=== PATIENT | male | born 1950 ===

== ENCOUNTER → 2017-03-31 | Outpatient (REF) ==
[~2017-03-31] MED LIST: DEPO-TESTOS200 MG/M1 IM; DOXYCYCLINE 10100 MG PO; GADOBUTROL IV; GLUCOPHAGE1000 MG PO; GLUCOPHAGE500 MG/TAB PO; JANUVIA 100MG100 MG PO; K-TAB20 PO; LEVAQUIN 750MG750 M1 PO; LEVEMIR100 U/ML SQ; LOVENOX 4040 MG/0.4 SQ; NORCO 325 MG-51 TAB PO; NOVOLOG 100U100 U/M1 SQ; PROTONIX 40MG T40 MG PO; PROZAC 10MG10 MG PO; SEPTRA DS 8001 TAB PO; VANCOCIN HCL1 GM IV
== END ==
LOC: ZLAB.WCH 10:22
DX: Z01.89 Encounter for other specified special examinations (principal)

== ENCOUNTER → 2017-04-02 | Outpatient (REF) | LOC: ZLAB.WCH 08:48 | DX: Z01.89 Encounter for other specified special examinations (principal) ==

== ENCOUNTER → 2017-04-02 | Outpatient (REF) | LOC: ZLAB.WCH 18:22 | DX: Z01.89 Encounter for other specified special examinations (principal) ==

== ENCOUNTER 2017-04-04 13:07 | Outpatient (CLI) | payer MEDICARE ==
[2017-04-04] MEDS ORDERED: LEVEMIR100 U/ML SQ ×2 (15:02→15:07)
[2017-04-04] MEDS ORDERED: GLUCOPHAGE500 MG/TAB PO (15:02)
[2017-04-04] MEDS ORDERED: DEPO-TESTOS200 MG/M1 IM (15:03)
[2017-04-04] MEDS ORDERED: GADOBUTROL IV (15:04)
[2017-04-04] MEDS ORDERED: SEPTRA DS 8001 TAB PO (15:05)
[2017-04-04] MEDS ORDERED: PROTONIX 40MG T40 MG PO (15:06)
[2017-04-04] MEDS ORDERED: LEVAQUIN 750MG750 M1 PO (15:06)
[2017-04-04] MEDS ORDERED: PROZAC 10MG10 MG PO (15:08)
[2017-04-04] MEDS ORDERED: VANCOCIN HCL1 GM IV (15:09)
[2017-04-04] MEDS ORDERED: NOVOLOG 100U100 U/M1 SQ (15:09)
[2017-04-04] MEDS ORDERED: NORCO 325 MG-51 TAB PO (15:10)
[2017-04-04] MEDS ORDERED: K-TAB20 PO (15:11)
[2017-04-04] MEDS ORDERED: LOVENOX 4040 MG/0.4 SQ (15:11)
== END 2017-04-04 15:14 | disposition home or self-care (01) ==
LOC: EUO 13:07
DX: M86.9 Osteomyelitis, unspecified (principal); Z95.828 Presence of other vascular implants and grafts
CPT/HCPCS: C1751

== ENCOUNTER → 2017-04-04 | Outpatient (REF) ==
[2017-04-04 09:51] LABS: THYROID STIMULATING HORMONE 1.46 uIU/mL (0.465-4.680)
== END ==
LOC: ZLAB.WCH 08:51
PROVIDERS: Internal Medicine
DX: Z01.89 Encounter for other specified special examinations (principal)

== ENCOUNTER → 2017-04-06 | Outpatient (REF) ==
[2017-04-07 21:24] LABS: CREATININE, serum 0.81 mg/dL (0.66-1.25)
== END ==
LOC: ZLAB.WCH 12:35
PROVIDERS: Internal Medicine
DX: Z01.89 Encounter for other specified special examinations (principal)

== ENCOUNTER → 2017-04-08 | Outpatient (REF) | LOC: ZLAB.WCH 09:02 | DX: Z01.89 Encounter for other specified special examinations (principal) ==

== ENCOUNTER → 2017-04-10 | Outpatient (REF) | LOC: ZLAB.WCH 11:12 | DX: Z01.89 Encounter for other specified special examinations (principal) ==

== ENCOUNTER 2017-04-15 08:59 | Inpatient (IN) | payer MEDICARE ==
[~2017-04-15] VITALS: Ht 175.3 cm; Wt 100.0 kg
[~2017-04-15 08:59] MED LIST changes: -DOXYCYCLINE 10100 MG PO; -GLUCOPHAGE1000 MG PO; -JANUVIA 100MG100 MG PO
[2017-04-15 11:02] VITALS: BP 120/74; PULSE 84; TEMP 97.7
[2017-04-15 12:02] LABS: BASO % 0.5 % (0.0-2.0); EOS # 0.1 (0.0-0.7); EOS % 1.9 % (0-4.0); GRAN # 4.6 (1.4-6.5); GRAN % 62.6 % (42.2-75.2); HEMOGLOBIN 12.1 g/dl (13.5-18.0); LYMPH # 1.9 (1.2-3.4); LYMPH % 25.8 % (20.0-51.0); MEAN CELL VOLUME 93 fl (80.0-100.0); MEAN CORPUSCULAR HEMOGLOBIN 31 pg (27.0-31.0); MEAN CORPUSCULAR HGB CONC 33 g/dl (33.0-37.0); MEAN PLATELET VOLUME 9.3 fl (7.4-10.4); MONO # 0.6 (0.1-0.6); MONO % 8.7 % (1.7-9.3); PLATELET COUNT 326 K/mm3 (130-400); RED BLOOD COUNT 3.96 M/mm3 (4.20-5.60); REDCELL DISTRIBUTION WIDTH-CV 13.8 % (11.5-14.5); WHITE BLOOD COUNT 7.4 K/mm3 (4.8-10.8)
[2017-04-15 12:05] LABS: HEMATOCRIT 36.8 % (42.0-52.0)
[2017-04-15 12:30] VITALS: BP 129/77; PULSE 69; TEMP 97.4
[2017-04-15 12:35] LABS: ADJUSTED CALCIUM 9.3 mg/dL (8.4-10.2); ALBUMIN 3.1 gm/dL (3.5-5.0); BILIRUBIN,TOTAL 0.5 mg/dL (0.0-1.0); CALCIUM 8.6 mg/dL (8.4-10.2); CREATININE, serum 0.83 mg/dL (0.66-1.25); POTASSIUM 3.6 mmol/L (3.4-5.0)
[2017-04-15 15:33] VITALS: BP 145/75; PULSE 77; TEMP 97.8
[2017-04-15 18:20] VITALS: BP 137/80; PULSE 67; TEMP 97.4
[2017-04-15 20:36] VITALS: BP 123/64; PULSE 80; TEMP 98.9
[2017-04-16 02:20] VITALS: BP 125/62; PULSE 76; TEMP 98.7
[2017-04-16 06:20] VITALS: BP 108/73; PULSE 85; TEMP 97.6
[2017-04-16 06:52] LABS: HEMATOCRIT 36.3 % (42.0-52.0); HEMOGLOBIN 11.8 g/dl (13.5-18.0)
[2017-04-16 07:08] LABS: CALCIUM 8.4 mg/dL (8.4-10.2); CREATININE, serum 0.87 mg/dL (0.66-1.25); POTASSIUM 3.8 mmol/L (3.4-5.0)
[2017-04-16 09:33] VITALS: BP 134/79; PULSE 79; TEMP 97.9
[2017-04-16 14:34] VITALS: BP 124/60; PULSE 80; TEMP 97.7
[2017-04-16 17:52] VITALS: BP 118/66; PULSE 77; TEMP 98.1
[2017-04-16 22:29] VITALS: BP 104/84; PULSE 73; TEMP 97.7
[2017-04-17 05:20] VITALS: BP 115/67; PULSE 77; TEMP 97.5
[2017-04-17 09:48] VITALS: BP 113/65; PULSE 64; TEMP 98.1
[2017-04-17] MEDS ORDERED: DOXYCYCLINE 10100 MG PO (11:49)
[2017-04-17] MEDS ORDERED: GLUCOPHAGE1000 MG PO (11:50)
[2017-04-17] MEDS ORDERED: LEVEMIR100 U/ML SQ (11:51)
[2017-04-17] MEDS ORDERED: JANUVIA 100MG100 MG PO (11:53)
[2017-04-17 13:23] VITALS: BP 113/65; PULSE 64; TEMP 98.1
[2017-04-17 13:36] VITALS: BP 105/51; PULSE 64; TEMP 98.1
== END 2017-04-17 14:15 | disposition swing bed (61) | DRG 617 ==
LOC: SURG 08:59
PROVIDERS: Orthopaedic Surgery; Physician Assistant
PROC: 0Y6Q0Z1 Detachment at Left 1st Toe, High, Open Approach (ICD-10-PCS; principal; 2017-04-15 16:45)
DX: E11.69 Type 2 diabetes mellitus with other specified complication (principal); M86.9 Osteomyelitis, unspecified; N39.0 Urinary tract infection, site not specified; E11.65 Type 2 diabetes mellitus with hyperglycemia; Z66 Do not resuscitate; E11.42 Type 2 diabetes mellitus with diabetic polyneuropathy; B95.62 Methicillin resistant Staphylococcus aureus infection as the cause of diseases classified elsewhere; Z91.14 Patient's other noncompliance with medication regimen; Z89.411 Acquired absence of right great toe; Z79.84 Long term (current) use of oral hypoglycemic drugs
CPT/HCPCS: 99223-AI; 99232-AI; 99239; A9284; J1644; J1815; J2250; J2704; J3370; J7050

== ENCOUNTER → 2017-05-07 | Outpatient (REF) ==
[~2017-05-07] MED LIST changes: +DOXYCYCLINE 10100 MG PO; +GLUCOPHAGE1000 MG PO; +JANUVIA 100MG100 MG PO
== END ==
LOC: ZAIV 06:10
DX: Z02.89 Encounter for other administrative examinations (principal)

== ENCOUNTER → 2017-06-18 | Outpatient (REF) | LOC: ZLAB.WCH 08:48 | DX: Z01.89 Encounter for other specified special examinations (principal) ==

== ENCOUNTER → 2018-01-02 | Outpatient (REF) ==
[2018-01-02 15:18] LABS: THYROID STIMULATING HORMONE 1.65 uIU/mL (0.465-4.680)
[2018-01-02 15:19] LABS: PSA-TOTAL 3.04 ng/mL (0-4)
== END ==
LOC: ZLAB.WCH 14:26
PROVIDERS: Internal Medicine
DX: Z01.89 Encounter for other specified special examinations (principal)
CPT/HCPCS: G0103

== ENCOUNTER → 2018-06-03 | Outpatient (REF) | LOC: ZLAB.WCH 15:56 | DX: Z01.89 Encounter for other specified special examinations (principal) ==

== ENCOUNTER → 2018-11-21 | Outpatient (REF) | LOC: ZLAB.WCH 17:13 | DX: Z01.89 Encounter for other specified special examinations (principal) ==